=== PATIENT | male | born 1980 | race Two or more races ===

== ENCOUNTER 2022-10-25 09:38 | Inpatient (IN) | payer MEDICAID, OTHER ==
[~2022-10-25] VITALS: Ht 177.8 cm; Wt 110.9 kg
[2022-10-25 10:33] LABS: Basophils # (auto) 0.1 10 ^3/uL (0-0.2); Basophils % (auto) 0.6 % (0.0-2.0); Eosinophils # (auto) 0 10 ^3/uL (0-0.8); Eosinophils % (auto) 0.2 % (0.0-7.0); Hematocrit 47.7 % (41.0-53.0); Hemoglobin 16.3 g/dL (13.5-17.5); Lymphocytes # (auto) 1.9 10 ^3/uL (0.4-5.4); Lymphocytes % (auto) 14.6 % (10.0-50.0); Mean Corpuscular Hemoglobin 28.3 pg (28.0-32.0); Mean Corpuscular Hgb Conc. 34.2 g/dL (32.0-36.0); Mean Corpuscular Volume 82.9 fL (80.0-100.0); Monocytes % (auto) 7.8 % (0.0-12.0); Neutrophils # (auto) 10.1 10 ^3/uL (1.6-8.6); Neutrophils % (auto) 76.8 % (37.0-80.0); Red Blood Cells 5.75 10^6/uL (4.5-5.90); Red Cell Distribution Width 14.5 % (11.8-14.3); White Blood Cell 13.1 10^3/uL (4.4-10.8)
[2022-10-25 10:59] LABS: Urine Bacteria FEW /hpf (None Seen); Urine Blood Negative /uL (Negative); Urine Mucus FEW (None Seen); Urine Specific Gravity 1.028 (1.001-1.035); Urine WBC 10 /hpf (0 - 3)
[2022-10-25 11:03] LABS: Calcium 8.6 mg/dL (8.5-10.1); Potassium 3.5 mmol/L (3.5-5.1)
[2022-10-25 11:13] LABS: Albumin 4.1 g/dL (3.4-5.0); BUN/Creatinine Ratio 12.5 (10.0-20.0)
[2022-10-25] MEDS ORDERED: ACETAMINOPHEN 325 MG TAB PO ONE (13:00)
[2022-10-25] MEDS ORDERED: KETOROLAC TROMETH 30 MG/ML 1ML VIAL IV ONE (13:00)
[2022-10-25] MEDS ORDERED: ONDANSETRON HCL 4 MG/2 ML VIAL IV ONE (13:00)
[2022-10-25] MEDS ORDERED: metroNIDAZOLE 500MG/100ML 100 ML IV ONE (13:45)
[2022-10-25] MEDS ORDERED: cefTRIAXone 1GM/50ML D5W 50 ML IV ONE (13:45)
[2022-10-25 14:20] LABS: INR 0.98 (0.9-1.15); Partial Thromboplastin Time 29.8 sec (24.6-33.4)
[2022-10-25] MEDS ORDERED: PANTOPRAZOLE 40 MG/10 ML VIAL INJ IV ONE (14:45)
[2022-10-25 15:29] LABS: Cholesterol 177 mg/dL (< 200)
[2022-10-25 15:31] LABS: HDL Cholesterol 57 mg/dL (40-59); LDL Cholesterol 111 mg/dL (< 100); Triglycerides 142 mg/dL (< 150)
[2022-10-25] MEDS: SODIUM CHLORIDE 0.9% 1,000 ML IV SCH (21:33)
[2022-10-25] MEDS: metroNIDAZOLE 500MG/100ML 100 ML IV SCH (21:45)
[2022-10-26] MEDS: SODIUM CHLORIDE 0.9% 1,000 ML IV SCH ×4 (00:05→21:16)
[2022-10-26 05:20] LABS: Basophils # (auto) 0.1 10 ^3/uL (0-0.2); Basophils % (auto) 0.6 % (0.0-2.0); Eosinophils # (auto) 0.1 10 ^3/uL (0-0.8); Eosinophils % (auto) 0.7 % (0.0-7.0); Hematocrit 42.9 % (41.0-53.0); Hemoglobin 14.8 g/dL (13.5-17.5); Lymphocytes % (auto) 22.2 % (10.0-50.0); Mean Corpuscular Hemoglobin 28.6 pg (28.0-32.0); Mean Corpuscular Hgb Conc. 34.5 g/dL (32.0-36.0); Mean Corpuscular Volume 82.9 fL (80.0-100.0); Monocytes % (auto) 10.5 % (0.0-12.0); Nucleated Red Blood Cells % 0.1 %; Red Blood Cells 5.17 10^6/uL (4.5-5.90); Red Cell Distribution Width 14.4 % (11.8-14.3); White Blood Cell 9.1 10^3/uL (4.4-10.8)
[2022-10-26 05:30] LABS: Albumin 3.4 g/dL (3.4-5.0); Calcium 8.3 mg/dL (8.5-10.1); Potassium 3.5 mmol/L (3.5-5.1)
[2022-10-26 05:34] LABS: BUN/Creatinine Ratio 18.7 (10.0-20.0); Bilirubin, Total 0.7 mg/dL (0.2-1.0)
[2022-10-26] MEDS: metroNIDAZOLE 500MG/100ML 100 ML IV SCH ×3 (05:36→21:16)
[2022-10-26] MEDS ORDERED: ceFAZolin 1GM/50ML 100 ML IV ONE (08:06)
[2022-10-26] MEDS ORDERED: ACCU-CHEK COMFORT CURVE STRIP VI ONE (08:30)
[2022-10-26] MEDS ORDERED: METOCLOPRAMIDE HCL 5MG/ml INJ 2ml VIAL IV PRN (08:30)
[2022-10-26] MEDS ORDERED: HYDROmorphone HCL 2 MG/ML VL/or syr IV PRN (08:30)
[2022-10-26] MEDS ORDERED: MORPHINE SULFATE INJ 2 MG/ml SYRG IV PRN (08:30)
[2022-10-26] MEDS ORDERED: MEPERIDINE HCL (50 MG/ML) 1 ML VIAL ONE (08:42)
[2022-10-26] MEDS ORDERED: SODIUM CHLORIDE LOCK 10 ML ONE (08:42)
[2022-10-26] MEDS ORDERED: ONDANSETRON HCL 4 MG/2 ML VIAL ONE (08:42)
[2022-10-26] MEDS ORDERED: DexAMETHasone SOD PHOS 10MG/1ML VIAL INJ ONE (08:42)
[2022-10-26] MEDS ORDERED: MIDAZOLAM HCL 2MG/2ML 2ml VIAL (1mg/ml) ONE (08:42)
[2022-10-26] MEDS ORDERED: NEOSTIGMINE 1 MG/ML INJ (10mg/10ML VIAL) ONE (08:42)
[2022-10-26] MEDS ORDERED: PROPOFOL 10 MG/ML 20 ML IV ONE (08:42)
[2022-10-26] MEDS ORDERED: GLYCOPYRROLATE 0.2 MG/ML 1ML VIAL ONE (08:42)
[2022-10-26] MEDS ORDERED: fentaNYL CITRATE 100 MCG/2 ML VL ONE (08:42)
[2022-10-26] MEDS ORDERED: ROCURONIUM 10MG/ML 10ML VIAL IV ONE (08:42)
[2022-10-26] MEDS: BUPIVACAINE 0.25% INJ 50ML VIAL ONE ×2 (08:51→10:03)
[2022-10-26] MEDS: LIDOCAINE W/ EPINEPHRINE 1% 20ML VIAL ONE ×2 (08:51→10:03)
[2022-10-26] MEDS ORDERED: POVIDONE IODINE 10 % TOPICAL OINT 30GM TOP ONE (10:04)
[2022-10-26] MEDS: HYDROmorphone HCL 2 MG/ML VL/or syr IV PRN ×3 (10:39→11:34)
[2022-10-26] MEDS: PANTOPRAZOLE 40 MG/10 ML VIAL INJ IV SCH (11:59)
[2022-10-26] MEDS: cefTRIAXone 1GM/50ML D5W 50 ML IV SCH (12:00)
[2022-10-26] MEDS: MORPHINE SULFATE INJ 2 MG/ml SYRG IV PRN ×2 (12:51→18:03)
[2022-10-26 16:00] VITALS: BP 125/77
[2022-10-26 16:25] VITALS: BP 125/77
[2022-10-26] MEDS ORDERED: DEXTROSE (50%) 50ML SYRG IV PRN (18:15)
[2022-10-26] MEDS ORDERED: ONDANSETRON HCL 4 MG/2 ML VIAL IV PRN (20:00)
[2022-10-26] MEDS: ACCU-CHEK COMFORT CURVE STRIP VI SCH (21:31)
[2022-10-26 22:00] VITALS: BP 128/75
[2022-10-26] MEDS ORDERED: InsuLIN REG 1unit/0.01ml Soln (100units/ml) SC SCH (22:00)
[2022-10-27 05:00] VITALS: BP 122/74
[2022-10-27] MEDS: metroNIDAZOLE 500MG/100ML 100 ML IV SCH ×2 (06:23→13:22)
[2022-10-27] MEDS: ACCU-CHEK COMFORT CURVE STRIP VI SCH ×2 (06:23→11:48)
[2022-10-27] MEDS: InsuLIN REG 1unit/0.01ml Soln (100units/ml) SC SCH ×2 (06:25→11:30)
[2022-10-27] MEDS: SODIUM CHLORIDE 0.9% 1,000 ML IV SCH (06:26)
[2022-10-27 06:58] LABS: Basophils # (auto) 0 10 ^3/uL (0-0.2); Basophils % (auto) 0.1 % (0.0-2.0); Eosinophils # (auto) 0 10 ^3/uL (0-0.8); Hematocrit 41.5 % (41.0-53.0); Hemoglobin 14.4 g/dL (13.5-17.5); Lymphocytes # (auto) 1.2 10 ^3/uL (0.4-5.4); Lymphocytes % (auto) 7.9 % (10.0-50.0); Mean Corpuscular Hemoglobin 28.8 pg (28.0-32.0); Mean Corpuscular Hgb Conc. 34.6 g/dL (32.0-36.0); Monocytes # (auto) 0.7 10 ^3/uL (0-1.3); Monocytes % (auto) 4.7 % (0.0-12.0); Neutrophils % (auto) 87.3 % (37.0-80.0); Red Cell Distribution Width 14.4 % (11.8-14.3)
[2022-10-27] MEDS: cefTRIAXone 1GM/50ML D5W 50 ML IV SCH (08:36)
[2022-10-27] MEDS: PANTOPRAZOLE 40 MG/10 ML VIAL INJ IV SCH (08:36)
[2022-10-27 09:38] VITALS: BP 127/81
[2022-10-27] MEDS ORDERED: PRAV20TA3 PO (10:49)
[2022-10-27] MEDS ORDERED: AMLO-489 PO (10:49)
[2022-10-27] MEDS ORDERED: HYDR-4902 PO (11:23)
[2022-10-27] MEDS ORDERED: LEVO500T31 PO (11:23)
[2022-10-27] MEDS ORDERED: ONDA-144 PO (11:23)
[2022-10-27 13:00] VITALS: BP 129/70
== END 2022-10-27 14:20 | disposition home or self-care (01) | DRG 710 ==
LOC: ER 09:38 → OVERFLOW 14:39 → CENTRAL 10-26 12:25
PROVIDERS: ADMIT Nurse Practitioner Family; ATTEND Internal Medicine
PROC: 0FT44ZZ Resection of Gallbladder, Percutaneous Endoscopic Approach (ICD-10-PCS; principal; 2022-10-26 09:07)
DX: A41.9 Sepsis, unspecified organism (principal); K80.00 Calculus of gallbladder with acute cholecystitis without obstruction; E11.9 Type 2 diabetes mellitus without complications; E66.01 Morbid (severe) obesity due to excess calories; E78.5 Hyperlipidemia, unspecified; I10 Essential (primary) hypertension; Z68.35 Body mass index [BMI] 35.0-35.9, adult
CPT/HCPCS: 36415; 71045; 76705; 80053; 80061; 81001; 82247; 82962; 83605; 83690; 84443; 85025; 85610; 85730; 86850; 86900; 86901; 87040; 87070; 87075; 87205; C9113; G0378; J0690; J0696; J1100; J1815; J1885; J2250; J2405; J2704; J3490

== ENCOUNTER 2024-12-20 13:33 | Inpatient (IN) | payer MEDICAID ==
[~2024-12-20] VITALS: Ht 177.8 cm; Wt 106.6 kg
[~2024-12-20 13:33] MED LIST: AMLO1TAB22 PO; HYDR-4902 PO; LEVO500T31 PO; ONDA-144 PO; PRAV20TA3 PO
--- NOTE | 2024-12-20 14:16 | ED.PDOC ---
History of Present Illness HPI Comments 44-year-old male with PMHx HTN presents with a chief complaint of headache, facial numbness, and nausea. Patient states that he has medication for his HTN, but that he is not compliant with them. Patient mentions that he checks his blood pressure and "it's always normal so I don't take them". Patient reports that he took 2 Motrin this morning and a [place] 5/325 for the headache, but it didn't go away. BP upon arrival was 150/94. Chief Complaint: Headache Time Seen by MD: 13:50 Primary Care Provider: MELISSAIES Reviewed Notes: Medications, Allergies Allergies: Coded Allergies: NO KNOWN ALLERGIES (Unverified , 10/25/22) Home Meds Active Scripts Hydrocodone-Acetaminophen (Hydrocodone Bitartrate/AC 5-325 mg) 1 Tab Tab, 1 TAB PO Q6HPRN PRN, #20 TAB Prov:SENA MANCIA MD 10/27/22 Levofloxacin (Levaquin) 500 Mg Tab, 500 MG PO DAILY, #7 TAB Prov:SENA MANCIA MD 10/27/22 Ondansetron (Zofran) 4 Mg Tab, 1 TAB PO Q6HR PRN, #20 TAB Prov:SENA MANCIA MD 10/27/22 Reported Medications Pravastatin Sodium (PRAVACHOL TABLET) 20 Mg Tb, 2 TAB PO DAILY, #30 TAB 5 Refills 10/27/22 Amlodipine Besylate (Amlodipine Besylate) 5 Mg Tab, 10 MG PO DAILY for 30 Days, MG 10/27/22 Information Source: Patient Mode of Arrival: EMS Severity: Moderate Timing: Hours Duration: Since onset Prehospital treatment: [employer] Past Medical History PAST MEDICAL HISTORY: DM, High Lipids, HTN Surgical History: Denies all surgeries Family History Family History: Reviewed,noncontributory to illness Social History Smoker: Non-Smoker Alcohol: Denies ETOH Use Drugs: Denies Drug Use Lives In: Home Constitutional: denies: chills, diaphoresis, fatigue, fever, malaise, sweats, weakness, others EENTM: denies: blurred vision, double vision, ear bleeding, ear discharge, ear drainage, ear pain, ear ringing, eye pain, eye redness, hearing loss, mouth pain, mouth swelling, nasal discharge, nose bleeding, nose congestion, nose pain, photophobia, tearing, throat pain, throat swelling, voice changes, others Respiratory: denies: cough, hemoptysis, orthopnea, SOB at rest, shortness of breath, SOB with excertion, stridor, wheezing, others Cardiovascular: denies: chest pain, dizzy spells, diaphoresis, Dyspnea on exertion, edema, irregular heart beat, left arm pain, lightheadedness, palpitations, PND, syncope, others Gastrointestinal: reports: nausea; denies: abdomen distended, abdominal pain, blood streaked bowels, constipated, diarrhea, dysphagia, difficulty swallowing, hematemesis, melena, poor appetite, poor fluid intake, rectal bleeding, rectal pain, vomiting, others Genitourinary: denies: burning, dysuria, flank pain, frequency, hematuria, incontinence, penile discharge, penile sore, pain, testicle pain, testicle swelling, urgency, others Neurological: reports: headache, numbness; denies: dizziness, fainting, left sided numbness, left sided weakness, paresthesia, pre-existing deficit, right sided numbness, right sided weakness, seizure, speech problems, tingling, tremors, weakness, others Musculoskeletal: denies: back pain, gout, joint pain, joint swelling, muscle pain, muscle stiffness, neck pain, others Integumetry: denies: bruises, change in color, change in hair/nails, dryness, laceration, lesions, lumps, rash, wounds, others Allergic/Immunocompromised: denies: Difficulty Healing, Frequent Infections, Hives, Itching, others Hematologic/Lymphatic: denies: anemia, blood clots, easy bleeding, easy bruising, swollen glands, others Endocrine: denies: excessive hunger, excessive sweating, excessive thirst, excessive urination, flushing, intolerance to cold, intolerance to heat, unexplained weight gain, unexplained weight loss, others Psychiatric: denies: anxiety, bipolar disorder, depression, hopeless, panic disorder, schizophrenia, sleepless, suicidal, others All Other Systems: Reviewed and Negative Physical Exam General Appearance: No Apparent Distress, Normal HEENT: Normal ENT Inspection, Pharynx Normal, TMs Normal Neck: Full Range of Motion, Non-Tender, Normal, Normal Inspection Respiratory: Chest Non-Tender, Lungs Clear, No Accessory Muscle Use, No Respiratory Distress, Normal Breath Sounds Cardiovascular: No Edema, No JVD, No Murmur, No Gallop, Normal Peripheral Pulses, Regular Rate/Rhythm Breast Exam: Deferred Gastrointestinal: No Organomegaly, Non Tender, No Pulsatile Mass, Normal Bowel Sounds, Soft Genitalia: Deferred Pelvic: Deferred Rectal: Deferred Extremities: No calf tenderness, Normal capillary refill, Normal inspection, Normal range of motion, Non-tender, No pedal edema Musculoskeletal : Apperance: Normal Neurologic: Alert, 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 Was a procedure done?: No Differential Dx Considerations may include: ACS, CVA, demyelinating disease, viral syndrome, migraine, electrolyte abnormalities, infectious etiology X-Ray, Labs, Meds, VS Vital Signs Date Time Temp Pulse Resp B/P (MAP) Pulse Ox O2 Delivery O2 Flow Rate FiO2 12/20/24 15:15 74 19 96 Room Air* 0 21 12/20/24 15:13 98.2 85 16 128/85 (99) 98 98.2 12/20/24 15:13 85 16 98 Room Air 12/20/24 13:45 98.5 84 18 150/94 (112) 99 98.5 Lab Test 12/20/24 15:11 12/20/24 14:18 Range/Units Urine Color Pending Urine Clarity Pending Urine pH Pending Urine Specific [place] Pending Urine Protein Pending Urine Ketones Pending Urine Blood Pending Urine Nitrite Pending Urine Bilirubin Pending Urine Urobilinogen Pending Urine Leukocyte Esterase Pending Urine RBC Pending Urine Microscopic WBC Pending Urine Squamous Epithelial Cells Pending Urine Bacteria Pending Urine Glucose Pending White Blood Count 9.7 4.4-10.8 10^3/uL Red Blood Count 6.38 H 4.5-5.90 10^6/uL Hemoglobin 18.5 H 13.5-17.5 g/dL Hematocrit 53.3 H 41.0-53.0 % Mean Corpuscular Volume 83.6 80.0-100.0 fL Mean Corpuscular Hemoglobin 29.0 28.0-32.0 pg Mean Corpuscular Hemoglobin Concent 34.7 32.0-36.0 g/dL Red Cell Distribution Width 13.8 11.8-14.3 % Platelet Count 243 140-450 10^3/uL Mean Platelet Volume 8.3 6.9-10.8 fL Neutrophils (%) (Auto) 65.6 37.0-80.0 % Lymphocytes (%) (Auto) 25.4 10.0-50.0 % Monocytes (%) (Auto) 7.6 0.0-12.0 % Eosinophils (%) (Auto) 0.7 0.0-7.0 % Basophils (%) (Auto) 0.7 0.0-2.0 % Neutrophils # (Auto) 6.4 1.6-8.6 10 ^3/uL Lymphocytes # (Auto) 2.5 0.4-5.4 10 ^3/uL Monocytes # (Auto) 0.7 0-1.3 10 ^3/uL Eosinophils # (Auto) 0.1 0-0.8 10 ^3/uL Basophils # (Auto) 0.1 0-0.2 10 ^3/uL Nucleated Red Blood Cells 0.2 % Sodium Level 139 136-145 mmol/L Potassium Level 3.8 3.5-5.1 mmol/L Chloride Level 101 98-107 mmol/L Carbon Dioxide Level 28 20-31 mmol/L Anion Gap 10 5-15 Blood Urea Nitrogen 13 9-23 mg/dL Creatinine 1.05 0.700-1.30 mg/dL Glomerular Filtration Rate Calc 90 >90 mL/min BUN/Creatinine Ratio 12.4 10.0-20.0 Serum Glucose 95 74-106 mg/dL Calcium Level 10.9 H 8.7-10.4 mg/dL Troponin I High Sensitivity 3 L </=54 ng/L Current Medications Medications (Trade) Dose Ordered Sig/Ketan Route Start Time Stop Time Status Last Admin Sodium Chloride 1,000 ml @ 1,000 mls/hr Q1H ONCE IV 12/20/24 14:00 12/20/24 14:59 DC 12/20/24 15:25 Acetaminophen (Tylenol Tablet) 650 mg ONCE ONCE PO 12/20/24 14:00 12/20/24 14:01 DC 12/20/24 15:25 Metoclopramide HCl (Reglan Injection) 10 mg ONCE ONCE IV 12/20/24 14:00 12/20/24 14:01 DC 12/20/24 15:26 Time of 1ST Reevaluation: 14:20 Reevaluation 1ST: Unchanged Patient Education/Counseling: Diagnosis, Treatment Family Education/Counseling: No Family Present SEPSIS Sepsis Screen Date sepsis recognized/suspect: Dec 20, 2024 Time Sepsis recognized/suspect: 1334 Recent Procedure: No On Antibiotic Therapy: No Respiratory Rate >20: No Heart Rate >90: No Temp<36 C (96.8 F) or >38.3 C: No SBP <90 or MAP <65 mmHG: No New Acute Mental Status Change: No Is the patient on CPAP, BIPAP,: No Physician Orders Urinalysis (12/20/24 13:55) Chest Portable (12/20/24 13:55) Electrocardigram (12/20/24 13:55) Head Without Contrast (12/20/24 13:55) Saline Lock (12/20/24 15:05) Vital Signs Date Time Temp Pulse Resp B/P (MAP) Pulse Ox O2 Delivery O2 Flow Rate FiO2 12/20/24 15:15 74 19 96 Room Air* 0 21 12/20/24 15:13 98.2 85 16 128/85 (99) 98 98.2 12/20/24 15:13 85 16 98 Room Air 12/20/24 13:45 98.5 84 18 150/94 (112) 99 98.5 Laboratory Tests Test 12/20/24 14:18 White Blood Count 9.7 10^3/uL (4.4-10.8) Medications Medications Dose Ordered Sig/Ketan Route Start Time Stop Time Status Last Admin Dose Admin Acetaminophen 650 mg ONCE ONCE PO 12/20/24 14:00 12/20/24 14:01 DC 12/20/24 15:25 Metoclopramide HCl 10 mg ONCE ONCE IV 12/20/24 14:00 12/20/24 14:01 DC 12/20/24 15:26 Sodium Chloride 1,000 ml @ 1,000 mls/hr Q1H ONCE IV 12/20/24 14:00 12/20/24 14:59 DC 12/20/24 15:25 Departure 1 Departure Time of Disposition: 16:23 (Patient presents with headache and paresthesias. Treat the patient with a migraine cocktail versus patient is still symptomatic or paresthesias we will admit patient for further workup and expert con sultation) Impression: Primary Impression: Paresthesias Additional Impressions: Facial numbness Migraine Qualified Codes: G43.109 - Migraine with aura, not intractable, without status migrainosus Disposition: 09 ADMITTED INPATIENT Admit to: Med Surg Condition: Serious Critical Care Note Critical Care Time?: Yes Critical care comment: Concern for CVA Authorized and Performed by: Brandi Malin MD Total critical care time: Approximately 43 minutes Due to a high probability of clinically significant, life threatening deterioration, the patient required my highest level of preparedness to intervene emergently and I personally spent this critical care time directly and personally managing the patient. This critical care time included obtaining a history; examining the patient; pulse oximetry; ordering and review of studies; arranging urgent treatment with development of a management plan; evaluation of patient's response to treatment; frequent reassessment; and, discussions with other providers. This critical care time was performed to assess and manage the high probability of imminent, life-threatening deterioration that could result in multi-organ failure. It was exclusive of separately billable procedures and treating other patients and teaching time. Please see my other sections and the rest of the note for further information on patient assessment and treatment. Stability Stability form required: No Heart Score Heart Score: Heart Score Response (Comments) Value History N/A 0 EKG N/A 0 Age N/A 0 Risk Factors N/A 0 Troponin N/A 0 Total 0 I personally scribed for BRANDI MALIN MD ([email or web address]) on 12/20/24 at 14:16. Electronically submitted by Jacinto Mayberry ([email or web address]). BRANDI MALIN MD Dec 20, 2024 14:16
--- NOTE | 2024-12-20 14:26 | DVH ---
XY CHEST PORTABLE, HISTORY: htn COMPARISON: XY CHEST PORTABLE on DOS: 10/25/22 XY CHEST PORTABLE on DOS: 10/25/22 TECHNICAL DATA: 1 view of the chest was obtained. FINDINGS: Lines and tubes: None Cardiomediastinal silhouette: normal Pulmonary vasculature: normal Lung expansion: normal Lung airspace: normal Lung interstitium: normal Pleura: normal Pneumothorax: no Bones: Unremarkable Other: no IMPRESSION: No acute intrathoracic abnormality.
[2024-12-20 14:32] LABS: Hemoglobin 18.5 g/dL (13.5-17.5)
[2024-12-20 14:34] LABS: Hematocrit 53.3 % (41.0-53.0); Mean Corpuscular Hemoglobin 29.0 pg (28.0-32.0); Mean Corpuscular Volume 83.6 fL (80.0-100.0); Nucleated Red Blood Cells % 0.2 %
[2024-12-20 14:38] LABS: Chloride 101 mmol/L (98-107); Potassium 3.8 mmol/L (3.5-5.1); Sodium 139 mmol/L (136-145)
[2024-12-20 14:39] LABS: Anion Gap 10 (5-15); Carbon Dioxide 28 mmol/L (20-31)
[2024-12-20 14:40] LABS: Calcium 10.9 mg/dL (8.7-10.4)
--- NOTE | 2024-12-20 14:41 | DVH ---
EXAM: CT HEAD WITHOUT CONTRAST INDICATION: htn, severe headache TECHNIQUE: CT of the head without intravenous contrast. Radiation Dose : 1. Head: CT Dose: CTDI volume is 66.38 mGy. Dose-length product is 1158.55 mGy*cm The dose indicators for CT are the volume Computed Tomography (CT) Dose Index (CTDIvol) and the Dose Length Product (DLP), and are measured in units of mGy and mGy-cm, respectively. These indicators are not patient dose, but values generated from the CT scanner acquisition factors. The report includes radiation exposure data for exposures received during this examination. COMPARISON: None FINDINGS: There is no evidence of acute intracranial hemorrhage, extra-axial collection, mass effect, midline s hift, herniation or hydrocephalus. The ventricles, sulci and cisterns are age appropriate. The naqvi-white differentiation is intact. The visualized paranasal sinuses and mastoid air cells are clear. The surrounding soft tissues and osseous structures are unremarkable. IMPRESSION: No acute intracranial abnormality. Radiation optimization: All CT scans at this facility use at least one of these dose optimization rober hniques: automated exposure control mA and/or kV adjustment per patient size (includes targeted exam s where dose is matched to clinical indication) or iterative reconstruction.
[2024-12-20 14:44] LABS: BUN/Creatinine Ratio 12.4 (10.0-20.0); Blood Urea Nitrogen 13 mg/dL (9-23); Glucose 95 mg/dL (74-106)
[2024-12-20 15:15] VITALS: PULSE 74; RESP 19; O2SAT 96
[2024-12-20] MEDS: ACETAMINOPHEN 325 MG TAB PO ONE (15:25)
[2024-12-20] MEDS: SODIUM CHLORIDE 0.9% 1,000 ML IV ONE (15:25)
[2024-12-20] MEDS: METOCLOPRAMIDE HCL 5MG/ml INJ 2ml VIAL IV ONE (15:26)
[2024-12-20 16:25] LABS: Urine Protein, UAD 1+ (Negative)
[2024-12-20] MEDS ORDERED: DOCUSATE SOD 100 MG CAP PO PRN (21:30)
[2024-12-20] MEDS: SODIUM CHLORIDE 0.9% 1,000 ML IV SCH (21:30)
[2024-12-20] MEDS ORDERED: hydrALAZINE HCL 20 MG/ML VL IV PRN (21:30)
[2024-12-20] MEDS ORDERED: ONDANSETRON HCL 4 MG/2 ML VIAL IV PRN (21:30)
[2024-12-20] MEDS ORDERED: HYDROcodone-ACET 5/325MG TAB PO PRN (21:30)
[2024-12-20] MEDS ORDERED: DEXTROSE (50%) 50ML SYRG IV PRN (21:30)
--- NOTE | 2024-12-20 22:33 | DVHHP2 ---
History of Present Illness Reason for Visit: Paresthesias History of Present Illness The patient is a 44-year-old male with past medical history of diabetes mellitus, hyperlipidemia, and hypertension who presented to [facility] ED with complaint of headache. Patient reports he has been experiencing headache associated with facial numbness, nausea, getting worse that prompted this visit. Patient was seen and evaluated in the ED, laboratory data shows WBC 9.7, platelets 243, sodium 139, potassium 3.8, BUN 13, creatinine 1.05, glucose 95, calcium 10.9, troponin 3, blood pressure 164/88, pulse 73, temperature 98.2 F, O2 saturation 96% on room air. Head CT showed no acute intracranial abnormali ty. Please see medication orders section in the computer. On my assessment, patient denied chest pain, no headache at this moment, no dizziness, no diaphoresis, no shortness of breath, no nausea, no vomiting, no fever, no chills. Patient was admitted for further evaluation and medical management. Past Medical History DM, High Lipids, HTN Past Surgical History Denies all surgeries Family History Reviewed, noncontributory to the management of this case. Past Social History The patient lives at home, denies smoking, alcohol or illicit drugs abuse. Review of Systems Constitutional: No: Fever, Chills, Sweats, Weakness, Malaise, Other Eyes: No: Pain, Vision change, Conjunctivae inflammation, Eyelid inflammation, Other, Redness ENT: No: Ear pain, Ear discharge, Nose pain, Nose discharge, Nose congestion, Mouth pain, Mouth swelling, Throat pain, Throat swelling, Other Respiratory: No: Cough, Dry, Shortness of breath, SOB with excertion, Wheezing, Hemoptysis, Pleuritic Pain, Sputum, Wheezing, Other Cardiovascular: No: Chest Pain, Palpitations, Orthopnea, Paroxysmal Noc. Dyspnea, Edema, Lt Headedness, Other Gastrointestinal: Nausea; No: Vomiting, Abdominal Pain, Diarrhea, Constipation, Melena, Hematochezia, Other Genitourinary: No Dysuria, No Frequency, No Incontinence, No Hematuria, No Retention, No Other Musculoskeletal: No: other, neck pain, shoulder pain, arm pain, back pain, hand pain, leg pain, foot pain Skin: No: Rash, Lesions, Jaundice, Bruising, Other Neurological: Numbness, Other (Headache); No: Weakness, Incoordination, Change in speech, Confusion, Seizures Allergies: Coded Allergies: NO KNOWN ALLERGIES (Unverified , 10/25/22) Medications Current Medications Medications Dose Ordered Sig/Ketan Route Start Time Stop Time Status Last Admin Dose Admin Amlodipine Besylate 5 mg DAILY PO 12/21/24 10:00 Hydralazine HCl 10 mg Q6HP PRN IV 12/20/24 21:30 Atorvastatin Calcium 20 mg HS PO 12/20/24 22:00 Diagnostic Test (Pha) 1 strip ACHS 12/20/24 22:00 Insulin Human Regular ACHS SC 12/20/24 22:00 Dextrose 50 ml UD PRN IV 12/20/24 21:30 Sodium Chloride 1,000 ml @ 60 mls/hr [id number] IV 12/20/24 21:30 Acetaminophen/ Hydrocodone Bitart 1 tab Q4HP PRN PO 12/20/24 21:30 Ondansetron HCl 4 mg Q4HP PRN IV 12/20/24 21:30 Docusate Sodium 100 mg BIDPRN PRN PO 12/20/24 21:30 Acetaminophen 650 mg Q6HP PRN PO 12/20/24 21:30 Exam Vital Signs Vital Signs Date Time Temp Pulse Resp B/P (MAP) Pulse Ox O2 Delivery O2 Flow Rate FiO2 12/20/24 21:42 99.2 80 18 155/89 (111) 97 99.2 12/20/24 15:15 Room Air* 0 21 General Appearance: Alert, Oriented X3, Cooperative, No acute distress HEENT: Atraumatic, PERRLA, EOMI, Mucous membr. moist/pink Respiratory: Clear to auscultation, Normal air movement Cardiovascular: Regular rate, Normal S1, Normal S2, No murmurs Abdominal: Normal bowel sounds, Soft, No tenderness, No hepatospenomegaly, No masses Extremities: No clubbing, No cyanosis, No edema, Normal pulses, No tenderness/swelling Skin: No rashes, No breakdown, No significant lesion Neuro: Normal speech, Normal tone, Sensation intact, Cranial nerves 3-12 NL, Reflexes 2+, Other (Headache) Psych/Mental Status: Mental status NL, Mood NL Labs/Xrays Labs Test 12/20/24 15:11 12/20/24 14:18 Range/Units Urine Color Yellow Yellow Urine Clarity Clear Clear Urine pH 7.0 5.0-9.0 Urine Specific [place] 1.023 1.001-1.035 Urine Protein 1+ H Negative Urine Ketones 1+ H Negative Urine Blood Negative Negative /uL Urine Nitrite Negative Negative Urine Bilirubin Negative Negative Urine Urobilinogen Normal Negative mg/dL Urine Leukocyte Esterase Negative Negative /uL Urine RBC <1 0 - 3 /hpf Urine Microscopic WBC 2 0-3 /HPF Urine Squamous Epithelial Cells None seen <5 /hpf Urine Bacteria None seen None Seen /hpf Urine Mucus Few None Seen Urine Glucose Normal Normal mg/dL White Blood Count 9.7 4.4-10.8 10^3/uL Red Blood Count 6.38 H 4.5-5.90 10^6/uL Hemoglobin 18.5 H 13.5-17.5 g/dL Hematocrit 53.3 H 41.0-53.0 % Mean Corpuscular Volume 83.6 80.0-100.0 fL Mean Corpuscular Hemoglobin 29.0 28.0-32.0 pg Mean Corpuscular Hemoglobin Concent 34.7 32.0-36.0 g/dL Red Cell Distribution Width 13.8 11.8-14.3 % Platelet Count 243 140-450 10^3/uL Mean Platelet Volume 8.3 6.9-10.8 fL Neutrophils (%) (Auto) 65.6 37.0-80.0 % Lymphocytes (%) (Auto) 25.4 10.0-50.0 % Monocytes (%) (Auto) 7.6 0.0-12.0 % Eosinophils (%) (Auto) 0.7 0.0-7.0 % Basophils (%) (Auto) 0.7 0.0-2.0 % Neutrophils # (Auto) 6.4 1.6-8.6 10 ^3/uL Lymphocytes # (Auto) 2.5 0.4-5.4 10 ^3/uL Monocytes # (Auto) 0.7 0-1.3 10 ^3/uL Eosinophils # (Auto) 0.1 0-0.8 10 ^3/uL Basophils # (Auto) 0.1 0-0.2 10 ^3/uL Nucleated Red Blood Cells 0.2 % Sodium Level 139 136-145 mmol/L Potassium Level 3.8 3.5-5.1 mmol/L Chloride Level 101 98-107 mmol/L Carbon Dioxide Level 28 20-31 mmol/L Anion Gap 10 5-15 Blood Urea Nitrogen 13 9-23 mg/dL Creatinine 1.05 0.700-1.30 mg/dL Glomerular Filtration Rate Calc 90 >90 mL/min BUN/Creatinine Ratio 12.4 10.0-20.0 Serum Glucose 95 74-106 mg/dL Calcium Level 10.9 H 8.7-10.4 mg/dL Troponin I High Sensitivity 3 L </=54 ng/L PATIENT: OPAL MALIK ACCT: [id number] UNIT: [id number] : 1980 LOC: ER ROOM / BED: / AGE / SEX: 44 / M ADM STATUS: REG ER SERVICE [id number] ORDERING PHYSICIAN: BRANDI ZHANG MD PROCEDURE(s): HWOCT - HEAD WITHOUT CONTRAST REASON: htn, severe headache ORDER NUMBER(s): [id number], ACCESSION NUMBER(s): [id number] EXAM: CT HEAD WITHOUT CONTRAST INDICATION: htn, severe headache TECHNIQUE: CT of the head without intravenous contrast. Radiation Dose: 1. Head: CT Dose: CTDI volume is 66.38 mGy. Dose-length product is 1158.55 mGy*cm The dose indicators for CT are the volume Computed Tomography (CT) Dose Index (CTDIvol) and the Dose Length Product (DLP), and are measured in units of mGy and mGy-cm, respectively. These indicators are not patient dose, but values generated from the CT scanner acquisition factors. The report includes radiation exposure data for exposures received during this examination. COMPARISON: None FINDINGS: There is no evidence of acute intracranial hemorrhage, extra-axial collection, mass effect, midline shift, herniation or hydrocephalus. The ventricles, sulci and cisterns are age appropriate. The naqvi-white differentiation is intact. The visualized paranasal sinuses and mastoid air cells are clear. The surrounding soft tissues and osseous structures are unremarkable. IMPRESSION: No acute intracranial abnormality. ORDERING PHYSICIAN: BRANDI ZHANG MD PROCEDURE(s): CXRP - CHEST PORTABLE REASON: htn ORDER NUMBER(s): [id number], ACCESSION NUMBER(s): [id number] XY CHEST PORTABLE, HISTORY: htn COMPARISON: XY CHEST PORTABLE on DOS: 10/25/22 XY CHEST PORTABLE on DOS: 10/25/22 TECHNICAL DATA: 1 view of the chest was obtained. FINDINGS: Lines and tubes: None Cardiomediastinal silhouette: normal Pulmonary vasculature: normal Lung expansion: normal Lung airspace: normal Lung interstitium: normal Pleura: normal Pneumothorax: no Bones: Unremarkable Other: no IMPRESSION: No acute intrathoracic abnormality. SEPSIS Sepsis Screen Date sepsis recognized/suspect: Dec 20, 2024 Time Sepsis recognized/suspect: 1514 Recent Procedure: No On Antibiotic Therapy: No Respiratory Rate >20: No Heart Rate >90: No Temp<36 C (96.8 F) or >38.3 C: No SBP <90 or MAP <65 mmHG: No New Acute Mental Status Change: No Is the patient on CPAP, BIPAP,: No Physician Orders Saline Lock (12/20/24 15:05) Cardiac Diet-2gna,Lofat,Lochol (12/20/24 Dinner) Amlodipine Tablet (Norvasc Tablet) (12/21/24 10:00) Hydralazine Injection (Apresoline Inject (12/20/24 21:30) Atorvastatin (Lipitor) (12/20/24 22:00) Glucose Blood (Accu-Chek Comfort Curve T (12/20/24 22:00) Insulin R (Human) (Insulin R) (12/20/24 22:00) Dextrose 50% Syringe (12/20/24 21:30) Allergies (12/20/24:25) Code Status (12/20/24:25) Sodium Chloride 0.9% (12/20/24 21:30) Oxygen Per Hour (12/20/24:25) Hydrocodone-Acet 5/325mg Tab ([place] 5/32 (12/20/24 21:30) Ondansetron Hcl (Zofran) (12/20/24 21:30) Docusate Sodium Capsule (Colace Capsule) (12/20/24 21:30) Complete Blood Count (12/21/24 04:00) Comprehensive Metabolic Panel (12/21/24 04:00) Condition: Serious (12/20/24 21:25) Acetaminophen Tablet (Tylenol Tablet) (12/20/24 21:30) Bedrest With Bathroom Privileg (12/20/24:25) Sequential Compression Device (12/20/24 ) Vital Signs Date Time Temp Pulse Resp B/P (MAP) Pulse Ox O2 Delivery O2 Flow Rate FiO2 12/20/24 21:42 99.2 80 18 155/89 (111) 97 99.2 12/20/24 19:48 98.2 73 16 164/88 (113) 96 98.2 12/20/24 18:05 97.5 70 16 150/82 (104) 96 97.5 12/20/24 15:15 74 19 96 Room Air* 0 21 12/20/24 15:13 98.2 85 16 128/85 (99) 98 98.2 12/20/24 15:13 85 16 98 Room Air Laboratory Tests Test 12/20/24 14:18 White Blood Count 9.7 10^3/uL (4.4-10.8) Medications Medications Dose Ordered Sig/Ketan Route Start Time Stop Time Status Last Admin Dose Admin Acetaminophen 650 mg ONCE ONCE PO 12/20/24 14:00 12/20/24 14:01 DC 12/20/24 15:25 650 MG Metoclopramide HCl 10 mg ONCE ONCE IV 12/20/24 14:00 12/20/24 14:01 DC 12/20/24 15:26 10 MG Sodium Chloride 1,000 ml @ 1,000 mls/hr Q1H ONCE IV 12/20/24 14:00 12/20/24 14:59 DC 12/20/24 15:25 1,000 MLS/HR Assessment/Plan Assessment/Plan Paresthesias Facial numbness Migraine Migraine with aura, not intractable, without status migrainosus Plan 1. Admit to med surge unit 2. Breathing treatment 3. Pain control management 4. Management of fluids and electrolytes 5. Consultation for hospitalist 6. Diagnostic tests head CT 7. DVT prophylaxis on SCDs 8. Repeat labs CBC, CMP in a.m. 9. Continue with current medical management 10. Treatment plan discussed with patient and RN. Patient verbalized understanding. Plan discussed with: Patient, Other (RN) My Orders Orders - LASHAWN FRANK DNP Procedure Category Date Status Time Amlodipine Tablet PHA 12/21/24 In Process (Norvasc Tablet) 10:00 Hydralazine Injection PHA 12/20/24 In Process (Apresoline Inject 21:30 Atorvastatin (Lipitor) PHA 12/20/24 In Process 22:00 Glucose Blood PHA 12/20/24 In Process (Accu-Chek Comfort 22:00 Insulin R (Human) PHA 12/20/24 In Process (Insulin R) 22:00 Dextrose 50% Syringe PHA 12/20/24 In Process 21:30 Allergies RUKHSANA 12/20/24 In Process 21:25 Code Status CODE 12/20/24 Transmitted 21:25 Sodium Chloride 0.9% PHA 12/20/24 In Process 21:30 Oxygen Per Hour RT 12/20/24 Transmitted 21:25 Hydrocodone-Acet PHA 12/20/24 In Process 5/325mg Tab ([place] 21:30 Ondansetron Hcl PHA 12/20/24 In Process (Zofran) 21:30 Docusate Sodium PHA 12/20/24 In Process Capsule (Colace 21:30 Complete Blood Count LAB 12/21/24 Verified 04:00 Comprehensive LAB 12/21/24 Verified Metabolic Panel 04:00 Condition: Serious RUKHSANA 12/20/24 In Process 21:25 Acetaminophen Tablet PHA 12/20/24 In Process (Tylenol Tablet) 21:30 Bedrest With Bathroom RUKHSANA 12/20/24 In Process Privileg 21:25 Sequential RUKHSANA 12/20/24 In Process Compression Device Problem List: (1) Paresthesias (2) Facial numbness (3) Migraine (4) Migraine with aura, not intractable, without status migrainosus Date of Service: Dec 20, 2024 Billing Provider: LASHAWN FRANK DNP Common Visit Codes: [id number] INP/OBS CARE (HIGH) LASHAWN FRANK DNP Dec 20, 2024 22:33
[2024-12-20 22:42] VITALS: PULSE 75; RESP 19; O2SAT 96
[2024-12-20] MEDS ORDERED: NITROGLYCERIN 0.4 MG SL TAB SL PRN (22:45)
[2024-12-20] MEDS ORDERED: MORPHINE SULFATE INJ 2 MG/ml SYRG IV PRN (22:45)
[2024-12-20] MEDS: ATORVASTATIN 20 MG TAB PO SCH (22:58)
[2024-12-20] MEDS: ACCU-CHEK COMFORT CURVE STRIP VI SCH (22:58)
[2024-12-20] MEDS: InsuLIN REG 1unit/0.01ml Soln (100units/ml) SC SCH (23:04)
[2024-12-21] VITALS (7 sets, daily range): BP systolic 122–146; BP diastolic 75–98; PULSE 69–74; RESP 18; TEMP 97.6–98.3; O2SAT 92–98
[2024-12-21 07:36] LABS: Hematocrit 49.6 % (41.0-53.0); Hemoglobin 17.6 g/dL (13.5-17.5); Mean Corpuscular Hemoglobin 29.6 pg (28.0-32.0); Mean Corpuscular Volume 83.3 fL (80.0-100.0); Nucleated Red Blood Cells % 0.1 %
[2024-12-21 07:54] LABS: Alkaline Phosphatase 83 U/L (46-116); Anion Gap 10 (5-15); BUN/Creatinine Ratio 12.2 (10.0-20.0); Blood Urea Nitrogen 11 mg/dL (9-23); Calcium 10.0 mg/dL (8.7-10.4); Carbon Dioxide 27 mmol/L (20-31); Chloride 102 mmol/L (98-107); Sodium 139 mmol/L (136-145); Total Protein 7.4 g/dL (5.7-8.2)
[2024-12-21 07:55] LABS: Bilirubin, Total 0.9 mg/dL (0.2-1.0)
[2024-12-21 07:58] LABS: Alanine Aminotransferase 48 U/L (7-40); Albumin 4.8 g/dL (3.2-4.8); Glucose 115 mg/dL (74-106); Potassium 3.4 mmol/L (3.5-5.1)
[2024-12-21] MEDS: CLOPIDOGREL BISULFATE 75 MG TAB PO ONE (12:01)
[2024-12-21] MEDS: ASPirin-EC 81 mg tab PO ONE (12:02)
[2024-12-21] MEDS: POTASSIUM EFFERVESENT TAB 25 MEQ PO ONE (12:02)
[2024-12-21] MEDS: ACETAMINOPHEN 325 MG TAB PO PRN (12:02)
--- NOTE | 2024-12-21 12:49 | DVH ---
Indication: Possible TIA Technique: Real-time ultrasound images of the neck vessels with naqvi-scale, color and wave Doppler we re obtained. Comparison: None Findings: The following peak systolic velocities were recorded in cm/sec: Right internal carotid: 70 Right common carotid: 68 Right external carotid: 59 Right internal/common carotid ratio: 1 Left internal carotid: 79 Left common carotid: 72 Left external carotid: 69 Left internal/common carotid ratio: 1.1 Right vertebral artery: Patent with normal antegrade direction of flow. Left vertebral artery: Patent with normal antegrade direction of flow. Impression: No hemodynamically significant stenosis by velocity criteria.
--- NOTE | 2024-12-21 16:47 | DVHPNRES ---
Progress Note Date Seen: Dec 21, 2024 Resident Creating Document: AMANDA RHODES RESIDENT Medical Necessity Reason Pt with a Central, PICC or Fol: No Subjective Review of Systems Patient is a 44-year-old male with past medical history of hypertension(noncompliant with medication), Diabetes mellitus type 2, and hyperlipidemia who presented to the ED via EMS with chief complaint of headache. He states that the day before presenting he had progressive onset of generalized pulsatile headache, 7/10 intensity, associated with nausea which required him to leave work. Headache persisted until the next morning when he states he began to feel numbness and cramping in both hands, which subsequently spread up his arms to his elbows. This was followed numbness in both feet and his face, which prompted him to seek medical care. He denies history of migraines, facial or extremity weakness, confusion, vomiting, palpitations, and chest pain. On evaluation in the ED, initial labs show WBC 9.7, hemoglobin 18.5, hematocrit 53.3, platelets 243, sodium 139, potassium 3.8, creatinine 1.05, troponins negative, and unsignificant UA. Chest x-ray shows no acute intrathoracic abnormality. Head CT no acute intracranial abnormality. Patient was admitted for further monitoring and work up. Surgical: Cholecystectomy Social: Denies drug, tobacco, and alcohol use. States he lives with his and feels safe. Patient seen at bedside. Patient states he feels better, headache and numbness have resolved. He states intermittent tingling sensation in his arms and legs. Denies recurrence of headache, nausea, vomiting, chest pain, and palpitations. Follow up labs significant for potassium at 3.4, which was subsequently repleted. Carotid doppler performed shows no hemodynamically significant stenosis by velocity criteria. Patient was counseled about the importance of adherence to both blood pressure and diabetes medications. Pending MRI brain for further work up. Review of Systems: Constitutional: Denies weight loss, fever and chills. HEENT: Denies changes in vision and hearing. Respiratory: Denies shortness of breath and cough Cardiovascular: Denies chest discomfort or palpitations GI: Denies abdominal distention, abdominal pain, diarrhea : Denies dysuria and urinary frequency. Musculoskeletal: Denies myalgias and joint pain Skin: Denies rash and pruritus. Neurological: States intermittent tingling sensation in arms and legs, denies dizziness headache vision or hearing problems Objective vital signs Vital Sign Date Time Temp Pulse Resp B/P (MAP) Pulse Ox O2 Delivery O2 Flow Rate FiO2 12/21/24 13:00 97.7 73 18 146/98 (114) 95 97.7 12/21/24 08:09 Room Air* 0 21 Total Intake and Output 12/20/24 12/20/24 12/21/24 15:00 23:00 07:00 Intake Total 1000 ml 0 ml Balance 1000 ml 0 ml medications Current Medications Medications Dose Ordered Sig/Ketan Route Start Time Stop Time Status Last Admin Dose Admin Amlodipine Besylate 5 mg DAILY PO 12/21/24 10:00 12/21/24 09:25 5 MG Atorvastatin Calcium 20 mg HS PO 12/20/24 22:00 12/20/24 22:58 20 MG Diagnostic Test (Pha) 1 strip ACHS 12/20/24 22:00 12/21/24 11:48 1 STRIP Insulin Human Regular ACHS SC 12/20/24 22:00 Dextrose 50 ml UD PRN IV 12/20/24 21:30 Sodium Chloride 1,000 ml @ 60 mls/hr [id number] IV 12/20/24 21:30 Acetaminophen/ Hydrocodone Bitart 1 tab Q4HP PRN PO 12/20/24 21:30 Ondansetron HCl 4 mg Q4HP PRN IV 12/20/24 21:30 Acetaminophen 650 mg Q6HP PRN PO 12/20/24 21:30 12/21/24 12:02 650 MG Clopidogrel Bisulfate 75 mg DAILY PO 12/22/24 10:00 Aspirin 81 mg DAILY PO 12/22/24 10:00 Examination General: The patient alert and oriented in person place and time. Patient following commands HEENT: Normocephalic, atraumatic, moist mucous membrane Respiratory/pulmonary: Clear lungs bilaterally, vesicular murmurs present in almost all lung anderson, no associated crackles or wheezes. Cardiovascular: Normal rate, normal S1 and S2 Abdomen: Abdomen nondistended, there is no pain to palpation in any of the abdominal quadrants, no palpable masses. Extremities: there is no peripheral edema present at the lower extremities. Peripheral pulses 3+ radial right, 3+ radials soft. 3+ dorsalis pedis right. 3+ dorsalis pedis left Skin: No rashes or pruritus Neurological: Intact cranial nerves with no focal neurologic deficits laboratory and microbiology Laboratory Tests 12/21/24 06:28 Test 12/21/24 06:28 Range/Units Serum Glucose 115 H 74-106 mg/dL Problem List/Assessment/Plan Problem List/Assessment/Plan Assessment and Plan: Possible TIA? -Aspirin 81 mg PO daily -Clopidogrel 75 mg PO daily -Head CT: No acute intracranial abnormality -MRI brain pending Acute numbness and paresthesias, likely due to above Hypertensive emergency, resolved -Hydralazine 10 mg IV, discontinued Hypertension (No-complaint with medication) -Amlodipine 5 mg PO daily Hypokalemia, 3.4 -Potassium 25 mEq PO Type 2 Diabetes Mellitus -SSI -Consistent carbohydrate diet Hyperlipidemia -Atorvastatin 20 mg PO Obesity, 33.8 kg/m2 Case discussed with Dr. Burrell. Goals of care discussed with the patient for over 20 minutes, who states he understands and agrees. Plan discussed with: Patient My Orders My Orders Orders - AMANDA RHODES RESIDENT Procedure Category Date Status Time Brain Head Wo Contrast MRI 12/21/24 Logged 15:24 Date of Service: Dec 21, 2024 Billing Provider: GABBY BURRELL MD Common Visit Codes: [id number] INP/OBS CARE(HIGH) AMANDA RHODES Dec 21, 2024 16:47 GABBY BURRELL MD Dec 23, 2024 16:09
--- NOTE | 2024-12-21 17:39 | DVH ---
PROCEDURE: MRI BRAIN HEAD WO CONTRAST INDICATION: Headache and numbess EXAM DATE: 12/21/2024 04:57 PM COMPARISON: None TECHNIQUE: MRI of the brain without intravenous contrast. FINDINGS: Diffusion weighted images of the brain demonstrate no evidence of acute infarction. There is no evidence of acute intracranial hemorrhage, extra-axial collection, mass effect, midline s hift, herniation or hydrocephalus. The ventricles, sulci and cisterns appear age appropriate. The signal intensities of the brain parenchyma are within normal limits. There are no signal abnormalities on the susceptibility weighted sequences. The major vascular flow voids are present. The visualized paranasal sinuses and mastoid air cells are clear. The surrounding soft tissues and o sseous structures are unremarkable. IMPRESSION: 1. No evidence of acute infarction, intracranial hemorrhage, mass effect or hydrocephalus. HS:Y
[2024-12-22 01:00] VITALS: BP 127/82; PULSE 75; RESP 18; TEMP 97.7; O2SAT 95
[2024-12-22 05:00] VITALS: BP 118/81; PULSE 76; RESP 18; TEMP 97.6; O2SAT 96
[2024-12-22 07:48] LABS: Hematocrit 50.8 % (41.0-53.0); Hemoglobin 17.8 g/dL (13.5-17.5); Mean Corpuscular Hemoglobin 29.5 pg (28.0-32.0); Mean Corpuscular Volume 83.9 fL (80.0-100.0); Nucleated Red Blood Cells % 0.1 %
[2024-12-22 08:09] LABS: Anion Gap 11 (5-15); Carbon Dioxide 27 mmol/L (20-31); Chloride 101 mmol/L (98-107); Sodium 139 mmol/L (136-145)
[2024-12-22 08:10] LABS: Potassium 3.3 mmol/L (3.5-5.1)
[2024-12-22 08:11] LABS: Calcium 10.2 mg/dL (8.7-10.4)
[2024-12-22 08:15] LABS: BUN/Creatinine Ratio 12.5 (10.0-20.0); Blood Urea Nitrogen 11 mg/dL (9-23); Glucose 100 mg/dL (74-106)
[2024-12-22 09:00] VITALS: BP 125/88; PULSE 74; RESP 18; TEMP 97.6; O2SAT 99
[2024-12-22] MEDS: CLOPIDOGREL BISULFATE 75 MG TAB PO SCH (10:29)
[2024-12-22] MEDS: ASPirin-EC 81 mg tab PO SCH (10:30)
[2024-12-22 13:00] VITALS: BP 150/95; PULSE 77; RESP 18; TEMP 98.4; O2SAT 99
[2024-12-22 15:24] VITALS: BP 150/95; PULSE 77; RESP 18; TEMP 98.4; O2SAT 99
--- NOTE | 2024-12-22 15:48 | DVHDSRES ---
Discharge Summary Date of Admission Resident Creating Document: AMANDA RHODES RESIDENT Dec 20, 2024 at 22:32 Date of Discharge: Dec 22, 2024 Admitting Diagnosis Paresthesias Wounds: No wounds Labs/Diagnostic Data: Laboratory Results Test 12/22/24 11:03 12/22/24 04:10 12/21/24 10:39 12/21/24 06:28 POC Glucose 108 mg/dl (70-106) White Blood Count 6.1 10^3/uL (4.4-10.8) Red Blood Count 6.05 10^6/uL (4.5-5.90) Hemoglobin 17.8 g/dL (13.5-17.5) Hematocrit 50.8 % (41.0-53.0) Mean Corpuscular Volume 83.9 fL (80.0-100.0) Mean Corpuscular Hemoglobin 29.5 pg (28.0-32.0) Mean Corpuscular Hemoglobin Concent 35.1 g/dL (32.0-36.0) Red Cell Distribution Width 13.7 % (11.8-14.3) Platelet Count 195 10^3/uL (140-450) Mean Platelet Volume 8.6 fL (6.9-10.8) Neutrophils (%) (Auto) 54.7 % (37.0-80.0) Lymphocytes (%) (Auto) 35.1 % (10.0-50.0) Monocytes (%) (Auto) 7.7 % (0.0-12.0) Eosinophils (%) (Auto) 1.7 % (0.0-7.0) Basophils (%) (Auto) 0.8 % (0.0-2.0) Neutrophils # (Auto) 3.3 10 ^3/uL (1.6-8.6) Lymphocytes # (Auto) 2.1 10 ^3/uL (0.4-5.4) Monocytes # (Auto) 0.5 10 ^3/uL (0-1.3) Eosinophils # (Auto) 0.1 10 ^3/uL (0-0.8) Basophils # (Auto) 0 10 ^3/uL (0-0.2) Nucleated Red Blood Cells 0.1 % Sodium Level 139 mmol/L (136-145) Potassium Level 3.3 mmol/L (3.5-5.1) Chloride Level 101 mmol/L (98-107) Carbon Dioxide Level 27 mmol/L (20-31) Anion Gap 11 (5-15) Blood Urea Nitrogen 11 mg/dL (9-23) Creatinine 0.88 mg/dL (0.700-1.30) Glomerular Filtration Rate Calc 109 mL/min (>90) BUN/Creatinine Ratio 12.5 (10.0-20.0) Serum Glucose 100 mg/dL (74-106) Calcium Level 10.2 mg/dL (8.7-10.4) Hemoglobin A1c 6.4 % A1C (<5.7) Total Bilirubin 0.9 mg/dL (0.2-1.0) Aspartate Amino Transferase (AST) 33 U/L (13-40) Alanine Aminotransferase (ALT) 48 U/L (7-40) Alkaline Phosphatase 83 U/L (46-116) Total Protein 7.4 g/dL (5.7-8.2) Albumin 4.8 g/dL (3.2-4.8) Test 12/20/24 15:11 12/20/24 14:18 Urine Color Yellow (Yellow) Urine Clarity Clear (Clear) Urine pH 7.0 (5.0-9.0) Urine Specific [place] 1.023 (1.001-1.035) Urine Protein 1+ (Negative) Urine Ketones 1+ (Negative) Urine Blood Negative /uL (Negative) Urine Nitrite Negative (Negative) Urine Bilirubin Negative (Negative) Urine Urobilinogen Normal mg/dL (Negative) Urine Leukocyte Esterase Negative /uL (Negative) Urine RBC <1 /hpf (0 - 3) Urine Microscopic WBC 2 /HPF (0-3) Urine Squamous Epithelial Cells None seen /hpf (<5) Urine Bacteria None seen /hpf (None Seen) Urine Mucus Few (None Seen) Urine Glucose Normal mg/dL (Normal) Troponin I High Sensitivity 3 ng/L (</=54) Other Laboratory Tests 12/22/24 04:10 Brief Hx & Hospital Course: Patient is a 44-year-old male with past medical history of hypertension(noncompliant with medication), Diabetes mellitus type 2, and hyperlipidemia who presented to the ED via EMS with chief complaint of headache. He states that the day before presenting he had progressive onset of generalized pulsatile headache, 7/10 intensity, associated with nausea which required him to leave work. Headache persisted until the next morning when he states he began to feel numbness and cramping in both hands, which subsequently spread up his arms to his elbows. This was followed numbness in both feet and his face, which prompted him to seek medical care. He denies history of migraines, facial or extremity weakness, confusion, vomiting, palpitations, and chest pain. On evaluation in the ED, initial labs show WBC 9.7, hemoglobin 18.5, hematocrit 53.3, platelets 243, sodium 139, potassium 3.8, creatinine 1.05, troponins negative, and UA with insignificant findings. Chest x-ray shows no acute intrathoracic abnormality. Head CT shows no acute intracranial abnormality. Patient was admitted for further monitoring and work up. Carotid doppler performed shows no hemodynamically significant stenosis by velocity criteria. MRI brain shows no evidence of acute infarction, intracranial hemorrhage, mass effect or hydrocephalus. Patient has progressed favorably. On evaluation today, patient states he feels well, is ambulating without issue, and has not had recurrence of his headache. Additionally states that tingling sensation has since resolved. Vitals have remained stable. Today's labs are within normal range. Patient is considered stable for discharge home. He has been counseled on the importance of adherence to his antihypertensive and diabetic regimens, as well setting up care with a PCP for further monitoring. Additionally, we recommend following up with outpatient neurology for further work up and monitoring of complex migraines. He is discharged with orders to follow up in 1-2 weeks in the discharge clinic. Surgical: Cholecystectomy Social: Denies drug, tobacco, and alcohol use. States he lives with his and feels safe. Physical Exam: General: The patient alert and oriented in person place and time. Patient following commands HEENT: Normocephalic, atraumatic, moist mucous membrane Respiratory/pulmonary: Clear lungs bilaterally, vesicular murmurs present in almost all lung anderson, no associated crackles or wheezes. Cardiovascular: Normal rate, normal S1 and S2 Abdomen: Abdomen nondistended, there is no pain to palpation in any of the abdominal quadrants, no palpable masses. Extremities: there is no peripheral edema present at the lower extremities. Peripheral pulses 3+ radial right, 3+ radials soft. 3+ dorsalis pedis right. 3+ dorsalis pedis left Skin: No rashes or pruritus Neurological: Intact cranial nerves with no focal neurologic deficits Case discussed with Dr. Bone. Goals of care discussed with the patient and his , [place], for over 25 minutes. He states he understands and agrees. Operations or Procedures XY CHEST PORTABLE, HISTORY: htn COMPARISON: XY CHEST PORTABLE on DOS: 10/25/22 XY CHEST PORTABLE on DOS: 10/25/22 TECHNICAL DATA: 1 view of the chest was obtained. FINDINGS: Lines and tubes: None Cardiomediastinal silhouette: normal Pulmonary vasculature: normal Lung expansion: normal Lung airspace: normal Lung interstitium: normal Pleura: normal Pneumothorax: no Bones: Unremarkable Other: no IMPRESSION: No acute intrathoracic abnormality. EXAM: CT HEAD WITHOUT CONTRAST INDICATION: htn, severe headache TECHNIQUE: CT of the head without intravenous contrast. Radiation Dose : 1. Head: CT Dose: CTDI volume is 66.38 mGy. Dose-length product is 1158.55 mGy*cm The dose indicators for CT are the volume Computed Tomography (CT) Dose Index (CTDIvol) and the Dose Length Product (DLP), and are measured in units of mGy and mGy-cm, respectively. These indicators are not patient dose, but values generated from the CT scanner acquisition factors. The report includes radiation exposure data for exposures received during this examination. COMPARISON: None FINDINGS: There is no evidence of acute intracranial hemorrhage, extra-axial collection, mass effect, midline shift, herniation or hydrocephalus. The ventricles, sulci and cisterns are age appropriate. The naqvi-white differentiation is intact. The visualized paranasal sinuses and mastoid air cells are clear. The surrounding soft tissues and osseous structures are unremarkable. IMPRESSION: No acute intracranial abnormality. Indication: Possible TIA Technique: Real-time ultrasound images of the neck vessels with naqvi-scale, color and wave Doppler were obtained. Comparison: None Findings: The following peak systolic velocities were recorded in cm/sec: Right internal carotid: 70 Right common carotid: 68 Right external carotid: 59 Right internal/common carotid ratio: 1 Left internal carotid: 79 Left common carotid: 72 Left external carotid: 69 Left internal/common carotid ratio: 1.1 Right vertebral artery: Patent with normal antegrade direction of flow. Left vertebral artery: Patent with normal antegrade direction of flow. Impression: No hemodynamically significant stenosis by velocity criteria. PROCEDURE: MRI BRAIN HEAD WO CONTRAST INDICATION: Headache and numbess EXAM DATE: 12/21/2024 04:57 PM COMPARISON: None TECHNIQUE: MRI of the brain without intravenous contrast. FINDINGS: Diffusion weighted images of the brain demonstrate no evidence of acute infarction. There is no evidence of acute intracranial hemorrhage, extra-axial collection, mass effect, midline shift, herniation or hydrocephalus. The ventricles, sulci and cisterns appear age appropriate. The signal intensities of the brain parenchyma are within normal limits. There are no signal abnormalities on the susceptibility weighted sequences. The major vascular flow voids are present. The visualized paranasal sinuses and mastoid air cells are clear. The surrounding soft tissues and osseous structures are unremarkable. IMPRESSION: 1. No evidence of acute infarction, intracranial hemorrhage, mass effect or hydrocephalus. Condition at Discharge: Stable Final Diagnosis/Problems List Complex Migraine Acute numbness and paresthesias, likely due to above TIA, ruled out Hypertensive emergency, resolved Hypertension, non-complaint with medications Type 2 Diabetes Mellitus Hypokalemia, resolved Hyperlipidemia Obesity, BMI 33.7 kg/m2 Discharge Disposition: Home Discharge Instruct/Medications Diet: Cardiac 2g Na,low cholest Activity: No Restrictions, As Tolerated Follow Up/Referral: Follow up in discharge clinic in 1-2 weeks Follow up with neurologist outpatient Medications: Lipitor Amlodipine Motrin Scheduled Amlodipine Besylate (Amlodipine Besylate), 10 MG PO DAILY, (Reported) Pravastatin Sodium (Pravachol Tablet), 2 TAB PO DAILY, (Reported) Discharge Statement: "Patient was advised to return to the ER or call 911 if any headaches, dizziness, shortness of breath, chest pain, abdominal pain, bleeding, fevers, or worsening of medical condition. Patient was counseled about treatment plan, medications, possible side effects, patientverbalized understanding. All questions were answered to the best of my ability. This discharge took greater then 30 minutes in planning, reviewing documentation, counseling the patient, and discussing with other team members." ASSESSMENT ASSESSMENT Assessment Complex Migraine Date of Service: Dec 22, 2024 Billing Provider: GABBY BONE MD Common Visit Codes: 48775-JZJ/OBS DISCH DAY >30min AMANDA RHODES RESIDENT Dec 22, 2024 15:48 GABBY BONE MD Dec 23, 2024 16:14
[2024-12-22 16:34] VITALS: BP 126/88; PULSE 84; RESP 20; TEMP 98.4; O2SAT 97
== END 2024-12-22 16:50 | disposition home or self-care (01) | DRG 54 ==
LOC: EDBD 13:33 → ER 13:33 → OVERFLOW 22:32 → WEST WING 12-21 02:52
PROVIDERS: ADMIT Student in an Organized Health Care Education/Training Program; ATTEND Emergency Medicine
DX: G43.109 Migraine with aura, not intractable, without status migrainosus (principal); E11.9 Type 2 diabetes mellitus without complications; E66.9 Obesity, unspecified; Z68.33 Body mass index [BMI] 33.0-33.9, adult; I16.1 Hypertensive emergency; E78.5 Hyperlipidemia, unspecified; E87.6 Hypokalemia; I10 Essential (primary) hypertension
CPT/HCPCS: 36415; 70450; 70551; 71045; 80048; 80053; 81001; 82962; 83036; 84484; 85025; 93886; 96361; 96374; 99291; G0378